=== PATIENT | female | born 1940 | race Caucasian/White ===

== ENCOUNTER 2022-07-02 11:21 | Emergency (ER) | payer MEDICARE, BC ==
[~2022-07-02] VITALS: Ht 167.6 cm; Wt 58.2 kg
[~2022-07-02 11:21] MED LIST: APIX5TAB3 PO
[2022-07-02 11:47] VITALS: BP 196/94
== END 2022-07-02 16:03 | disposition left against medical advice (07) ==
LOC: ER 11:21
DX: M79.604 Pain in right leg (principal); Z53.21 Procedure and treatment not carried out due to patient leaving prior to being seen by health care provider